=== PATIENT | female | born 1965 | race Caucasian/White ===

== ENCOUNTER → 2016-10-15 | Outpatient (CLI) | payer OTHER ==
[~2016-10-15] MED LIST: BUPR-79 PO; MELO15TA3 PO; METH-307 PO
== END | disposition home or self-care (01) ==
LOC: C.LABPVFM 15:01
PROVIDERS: ATTEND Nurse Practitioner
DX: Z00.00 Encounter for general adult medical examination without abnormal findings (principal)

== ENCOUNTER → 2017-07-27 | Outpatient (CLI) | payer OTHER ==
--- NOTE | 2017-07-27 15:17 | MAMMOGRAPHY REPORT ---
BILATERAL DIGITAL SCREENING MAMMOGRAM TOMOSYNTHESIS WITH CAD: 07/27/2017 CLINICAL HISTORY: Routine screening. Patient has no complaints. TECHNIQUE: Breast tomosynthesis in addition to standard 2D mammography was performed. Current study was also evaluated with a Computer Aided Detection (CAD) system. COMPARISON: Comparison is made to exams dated: 06/02/2016 mammogram, 04/23/2015 mammogram, 04/01/2014 m ammogram, 01/19/2013 mammogram, 03/22/2012 mammogram, and 03/10/2011 mammogram - [facility] nter. BREAST COMPOSITION: The tissue of both breasts is heterogeneously dense, which may obscure small mas ses. FINDINGS: No suspicious masses, calcifications, or areas of architectural distortion are noted in ei ther breast. There has been no significant interval change compared to prior exams. Scattered bilater al benign-appearing calcifications are not significantly changed. IMPRESSION: ACR BI-RADS CATEGORY 2: BENIGN There is no mammographic evidence of malignancy. A 1 year screening mammogram is recommended. The pa tient will receive written notification of the results. Approximately 10% of breast cancers are not detected with mammography. A negative mammographic report should not delay biopsy if a clinically suggestive mass is present. Essie Reid M.D. ah/:07/27/2017 12:23:57 Grades 6 Through 8 Teacher: Cierra WHATLEY)(M), [facility] letter sent: Normal 1/2 BI-RADS Code: ACR BI-RADS Category 2: Benign
== END | disposition home or self-care (01) ==
LOC: C.MAMM 10:26
PROVIDERS: ATTEND Family Medicine
DX: Z12.31 Encounter for screening mammogram for malignant neoplasm of breast (principal)

== ENCOUNTER → 2018-03-16 | Outpatient (CLI) | payer OTHER ==
[2018-03-16 13:21] LABS: HEMOGLOBIN A1C 5.7 % (4.5-5.6)
== END | disposition home or self-care (01) ==
LOC: C.LABPVFM 07:51
PROVIDERS: ATTEND Internal Medicine
DX: Z00.00 Encounter for general adult medical examination without abnormal findings (principal); R73.01 Impaired fasting glucose

== ENCOUNTER 2024-05-11 17:17 | Observation (INO) ==
[2024-05-11] MEDS: dilTIAZem HCl 5 MG/ML 5 ML VIAL IV STA ×2 (17:42→17:58)
[2024-05-11] MEDS: ASPIRIN CHEW 324 MG PO STA (17:42)
[2024-05-11 17:56] LABS: iSTAT Creatinine 0.9 mg/dl (0.6-1.3); iSTAT Ionized Calcium 0.98 mmol/l (1.12-1.32)
[2024-05-11] MEDS: ASPIRIN CHEW 324 MG ONE (17:57)
[2024-05-11] MEDS: LORazepam 1 MG TAB ONE (17:58)
[2024-05-11] MEDS: dilTIAZem HCL 30 MG TAB PO ONE (17:58)
[2024-05-11] MEDS: LORazepam 1 MG TAB SL STA (17:58)
[2024-05-11] MEDS: SODIUM CHLORIDE 0.9% 1,000 ML IV ONE (17:58)
[2024-05-11] MEDS: dilTIAZem HCL 125 MG in DEXTROSE 5% 100 ML IV SCH (18:20)
[2024-05-11] MEDS: STAT IV Infusion **Titration per Protocol STA (18:21)
[2024-05-11] MEDS: OPTIRAY 320 125ml IV ONE (18:21)
--- NOTE | 2024-05-11 18:37 | Emergency Department Note ---
History of Present Illness General Chief Complaint: Syncope (Near Syncope) Stated Complaint: PALPATATIONS Time Seen by Provider: 05/11/24 17:34 History of Present Illness Provider Complaint: + palpitations Time: 15:10 Duration: + Worsening Context: + occurred during rest Arrhythmia history: + SVT; no on anti-coagulants Associated symptoms: + shortness of breath and + muscle cramps; no nausea, no vomiting or no cough Home Medications Medication Instructions Recorded Confirmed Type cholecalciferol (vitamin D3) 50 2,000 units PO DAILY 10/02/19 03/28/24 History mcg (2,000 unit) tablet diclofenac sodium 1 % topical gel 4 g topical QID PRN pain #100 grams 02/12/21 03/28/24 Rx glucosamine-chondroitin 250 mg-200 2 tab PO TID 01/05/23 03/28/24 History mg tablet (Osteo Bi-Flex) meclizine 25 mg tablet 25 mg PO Q8H PRN dizziness #30 tabs 01/31/23 03/28/24 Rx bupropion HCl 150 mg 24 hr tablet, 150 mg PO DAILY #90 tabs 12/27/23 03/28/24 Rx extended release cyclobenzaprine 5 mg tablet See Rx Instructions .Route 12/28/23 03/28/24 Rx .COMPLEX PRN muscle spasm #180 tabs methocarbamol 750 mg tablet 750 mg PO Q6H PRN muscle spasm #90 01/31/24 03/28/24 Rx tabs prochlorperazine maleate 5 mg 5 mg PO TID PRN nausea and 01/31/24 03/28/24 Rx tablet (Compazine) vomiting #30 tabs prednisone 20 mg tablet 20 mg PO .COMPLEX PRN neck pain 03/06/24 03/28/24 Rx #20 tabs tramadol 50 mg tablet 50 mg PO DAILY PRN migraines #10 03/20/24 03/28/24 Rx tabs diazepam 5 mg tablet 5 mg PO .COMPLEX #2 tabs 03/28/24 03/28/24 Rx magnesium oxide 500 mg PO DAILY 03/28/24 03/28/24 History Allergies Allergy/AdvReac Type Severity Reaction Status Date / Time scopolamine Allergy Unknown CAN NOT Verified 03/28/24 09:59 TOLERATE Past Med/Surg History Problem List (Updated 09/20/24 @ 18:53 by Rajendra Martinez MD) Atrial fibrillation with RVR (Acute) Myofascial pain Cervical facet joint syndrome Cervicogenic headache Cervicalgia Impacted cerumen of both ears Onychomycosis of toenail (Chronic) Motion sickness (Chronic) Impaired fasting glucose (Chronic) Surgical History History of tooth extraction History of hand surgery History of delivery Family History Mother Hypertension Stroke Father Prostate cancer Other Diabetes No family history of adverse response to anesthesia No family history of bleeding disorder Osteoporosis Pure hypercholesterolemia Denies family history of Ovarian cancer Myocardial infarction Breast cancer Colorectal cancer Social History Smoking Status: Never smoker Second Hand Exposure: No; Do You Dip or Chew Tobacco: No; Hx Alcohol Use: No Hx Substance Use: No Preferred Language: Bangladeshi Communication Ability: Effective Visual Impairment: No Limitations Hearing Ability: Normal 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 marital status: Current Living Situation: Spouse and Family current occupational status: employed current occupation: [employer] How many Children do You have: 3 Feels Safe at Home: Yes Childhood Exposure to Second-Hand Smoke: No Diet: regular caffeine: Yes during the past year weight has: remained stable Dental Care, Regularly: Yes Physical Activity Frequency: 3-4 Times per Week Seatbelt Use: always Sunscreen Use: Yes Physical Exam 2 Vital Signs: Vital Signs - 24 hr 05/11/24 17:23 05/11/24 17:23 05/11/24 17:23 Temperature 36.4 C L Temperature Source Skin Pulse Rate 117 H Respiratory Rate 20 Respiratory Effort / Characteristics Non-Labored Sponta neous Respiratory Depth Normal Blood Pressure 94/67 L Blood Pressure Sandy n 76 Pulse Oximetry 100 Oxygen Delivery Me thod Room Air Room Air Room Air Sepsis Recent Feve r Within 48 Hours No Sepsis New/Unexpla ined Change in Men jona Status N/A Sepsis Action Take n by Nursing No Action Required 05/11/24 17:36 05/11/24 17:51 05/11/24 18:00 Temperature Temperature Source Pulse Rate 173 H 142 H 107 H Respiratory Rate 28 H 21 Respiratory Effort / Characteristics Respiratory Depth Blood Pressure 124/98 116/89 Blood Pressure Sandy n 106 98 Pulse Oximetry 96 97 Oxygen Delivery Me thod Sepsis Recent Feve r Within 48 Hours Sepsis New/Unexpla ined Change in Men jona Status Sepsis Action Take n by Nursing 05/11/24 18:22 05/11/24 18:24 05/11/24 18:30 Temperature Temperature Source Pulse Rate 100 H 102 H Respiratory Rate 17 Respiratory Effort / Characteristics Respiratory Depth Blood Pressure 108/77 108/77 Blood Pressure [facility] n 87 88 Pulse Oximetry 98 Oxygen Delivery Me thod Sepsis Recent Feve r Within 48 Hours Sepsis New/Unexpla ined Change in Men jona Status Sepsis Action Take n by Nursing Physical Exam: Physical Exam HENT: Exam performed. - Head: Normocephalic and atraumatic. EYES: Conjunctivae and EOM are normal. Right eye exhibits no discharge. Left eye exhibits no discharge. No scleral icterus. NECK: Normal range of motion. Neck supple. No JVD present. CV: Tachycardic rate, irregular rhythm, normal heart sounds and intact distal pulses. There is no peripheral edema. Palpable radial pulses bue. PULM/CHEST: Effort normal and breath sounds normal. No respiratory distress. No stridor. no wheezes. no rales. ABD: The abdomen is soft. There is no tenderness. NEURO: Motor and sensation grossly intact. SKIN: Skin is warm and dry. He is not diaphoretic. PSYCH: normal mood and affect. Behavior is normal. Judgment and thought content normal. Course Course 1733: The patient was evaluated in room A1. A complete history and physical exam was performed Cardiac monitoring: An order was placed for continuous cardiac monitoring. The monitor shows a rate of 165-180 with atrial fibrilation rhythm interpreted by me Patient found to be in A-fib RVR. Large-bore IV access was obtained. Cardizem 15 mg IV bolus was given which improved the patient's ventricular rate into the 150s. A repeat dose of 20 mg IV bolus of Cardizem was given which improved the patient's rate into the 120s. I-STAT showed a potassium of 5, otherwise unremarkable. EKGs showed no peaked T waves. Will send patient for CTA to rule out PE. 1849: Vital signs stable. Patient broke out of A-fib and went to sinus rhythm after being on Cardizem drip. Cardizem drip was stopped. Troponin negative. CTA of the chest negative. Patient will be admitted to the [facility] team. Discussed the case with Kosta Banks who states he will evaluate the patient for admission with attending Dr. Carlson. SCOTT?DS?-VASc Score for Atrial Fibrillation Stroke Risk from cVidya.CDP on 05/11/2024 All calculations should be rechecked by clinician prior to use RESULT SUMMARY: 1 points Stroke risk was 0.6% per year in >90,000 patients (the [place] Atrial Fibrillation Cohort Study) and 0.9% risk of stroke/TIA/systemic embolism. One recommendation suggests a 0 score for men or 1 score for women (no clinical risk factors) is low risk and may not require anticoagulation; a 1 score for men or 2 score for women is low-moderate risk and should consider anticoagulation; and a score >= for men or >= for women is moderate-high risk and should otherwise be an anticoagulation candidate. INPUTS: Age > 0 = <65 Sex > 1 = Female CHF history > 0 = No Hypertension history > 0 = No Stroke/TIA/thromboembolism history > 0 = No Vascular disease history (prior MS, peripheral artery disease, or aortic plaque) > 0 = No Diabetes history > 0 = No Administered Medications Diltiazem HCl 125 mg/ Dextrose 125 mls @ 5 mls/hr IV .Q24H NANDO; Protocol Stop: 06/10/24 17:59 Last Admin: 05/11/24 18:20 Dose: 5 mg/hr, 5 mls/hr Documented By: DELLA Co-signed By: SHAWNA Discontinued Medications Aspirin (Aspirin Chew 324 Mg) Confirm Administered Dose 324 mg .ROUTE .STK-MED ONE Stop: 05/11/24 17:38 Last Admin: 05/11/24 17:57 Dose: Not Given Documented By: DELLA Aspirin (Aspirin Chew 324 Mg) 324 mg PO NOW STA Stop: 05/11/24 17:38 Last Admin: 05/11/24 17:42 Dose: 324 mg Documented By: SHAWNA Diltiazem HCl (Diltiazem Hcl 5 Mg/Ml 5 Ml Vial) 15 mg IV NOW STA Stop: 05/11/24 17:38 Last Admin: 05/11/24 17:42 Dose: 15 mg Documented By: SHAWNA Co-signed By: DELLA Diltiazem HCl (Diltiazem Hcl 30 Mg Tab) Confirm Administered Dose 30 mg PO .STK- MED ONE Stop: 05/11/24 17:39 Last Admin: 05/11/24 17:58 Dose: Not Given Documented By: DELLA Diltiazem HCl (Diltiazem Hcl 5 Mg/Ml 5 Ml Vial) 20 mg IV NOW STA Stop: 05/11/24 17:49 Last Admin: 05/11/24 17:58 Dose: 20 mg Documented By: DELLA Co-signed By: SHAWNA Sodium Chloride (Nss) 1,000 mls @ 999 mls/hr IV .Q1H1M ONE Stop: 05/11/24 18:37 Last Admin: 05/11/24 17:58 Dose: 999 mls/hr Documented By: DELLA Ioversol (Optiray 320 125ml) 118 ml IV ONCE ONE Stop: 05/11/24 18:21 Last Admin: 05/11/24 18:21 Dose: 118 ml Documented By: LANIE Lorazepam (Lorazepam 1 Mg Tab) 1 mg SL NOW STA Stop: 05/11/24 17:46 Last Admin: 05/11/24 17:58 Dose: 1 mg Documented By: DELLA Lorazepam (Lorazepam 1 Mg Tab) Confirm Administered Dose 1 mg .ROUTE .STK-MED ONE Stop: 05/11/24 17:46 Last Admin: 05/11/24 17:58 Dose: Not Given Documented By: DELLA Miscellaneous (Stat Iv Infusion Titration Per Protocol) 1 each N/A NOW STA Stop: 05/11/24 17:49 Last Admin: 05/11/24 18:21 Dose: Not Given Documented By: DELLA Medical Decision Making Laboratory Data Attestation: I reviewed the patient's lab results. 05/11/24 18:00 05/11/24 18:00 Lab Results 05/11/24 05/11/24 05/11/24 Range/Units 17:43 18:00 18:05 WBC 7.37 (4.8-10.8) K/ul RBC 4.86 (4.20-5.40) M/uL Hgb 14.5 (12.0-16.0) g/dl POC Hgb 15.0 (12.0-16.0) g/dl Hct 43.4 (37.0-47.0) % POC Hct 44 (37-47) % MCV 89.3 (80.0-100.0) fL MCH 29.8 (25.0-34.0) pg MCHC 33.4 (32.0-36.0) g/dL RDW Std Deviation 38.9 (36.4-46.3) fL RDW Coeff of Jack 12.0 (11.5-14.5) % Plt Count 276 (130-400) K/uL MPV 9.6 (9.4-12.4) fL Immature Gran % (Auto) 0.3 % Neut % (Auto) 49.6 % Lymph % (Auto) 38.7 % Simpson % (Auto) 9.9 % Eos % (Auto) 1.1 % Baso % (Auto) 0.4 % Neut # (Auto) 3.66 (1.40-6.50) K/uL Lymph # (Auto) 2.85 (1.20-3.40) K/uL Simpson # (Auto) 0.73 H (0.11-0.59) K/uL Eos # (Auto) 0.08 (0.00-0.50) K/uL Baso # (Auto) 0.03 (0.00-0.20) K/uL Immature Gran # (Auto) 0.02 (0.01-0.20) K/uL POC Sodium 139 (135-144) mmol/L Sodium TNP POC Potassium 5.0 (3.3-5.0) mmol/L Potassium TNP POC Chloride 104 (101-112) mmol/L Chloride 104 (98-107) mmol/L Carbon Dioxide 26 (21-32) mmol/L POC Total CO2 25 (24-31) mmol/L Anion Gap TNP POC Anion Gap 17.0 (16-25) mmol/L POC BUN 16 (7-18) mg/dl BUN 14 (6-23) mg/dl Creatinine 0.95 (0.6-1.2) mg/dl POC Creatinine 0.9 (0.6-1.3) mg/dl Est Cr Clr Drug Dosing 59.7 ml/min Est GFR ( Amer) 76.0 ml/min Est GFR (Non-Af Amer) 65.6 ml/min BUN/Creatinine Ratio 14.7 (10-20) Glucose 131 H (70-99(Fasting)) mg/dl POC Glucose (other) 139 H (70-99) mg/dl Calcium 9.6 (8.6-10.3) mg/dl POC Ioniz Calcium Brenda 0.98 L (1.12-1.32) mmol/l Magnesium TNP Total Bilirubin 0.3 (0.2-1.0) mg/dl AST TNP ALT 16 (7-52) U/L Alkaline Phosphatase 47 (34-104) U/L Troponin I High Sens 2.6 (0-14) pg/ml Total Protein 7.6 (6.0-8.3) gm/dl Albumin 4.7 (3.4-5.0) gm/dl Globulin 2.9 (2.5-4.0) gm/dl Albumin/Globulin Ratio 1.6 (0.9-2) Urine Color Yellow Urine Appearance Clear (Clear) Urine pH 7.5 (4.5-7.5) Ur Specific [place] 1.002 (1.000-1.030) Urine Protein Negative (Negative) Urine Glucose (UA) Negative (Negative) Urine Ketones Negative (Negative) Urine Blood Negative (Negative) Urine Nitrite Negative (Negative) Urine Bilirubin Negative (Negative) Urine Urobilinogen Negative (Negative) Ur Leukocyte Esterase Trace H (Negative) Urine WBC (Auto) 0-5 (0-5) /hpf Urine RBC (Auto) 0-2 (0-2) /hpf U Hyaline Cast (Auto) 0-2 (0-2) /lpf U Epithel Cells (Auto) 0-2 (0-2) /hpf Urine Bacteria (Auto) None Seen (None Seen) Imaging Data Attestation: I personally reviewed and interpreted this imaging study as follows: My Impression: Chest x-ray negative. Airway clear. No pneumothorax. No consolidation. No cardiomegaly or cephalization.. No free air under the diaphragm. No fractures of the skeletal structures. Radiologist's Impression: Chest CTA 05/11/24 17:39 CT ANGIOGRAPHY OF THE CHEST, PULMONARY EMBOLUS PROTOCOL CLINICAL HISTORY: Palpitations. Evaluate for pulmonary embolus. COMPARISON STUDY: No previous studies for comparison. TECHNIQUE: Following IV administration of 118 mL of Optiray, helical axial images of the chest were obtained utilizing the pulmonary embolus protocol. Maximal intensity projections and sagittal and coronal reformats were viewed on an independent 3D workstation. IV contrast was administered without complication. Automated exposure control was utilized for the study. A dose lowering technique was utilized adhering to the principles of ALARA. CT DOSE: 319.4 mGy.cm FINDINGS: No pulmonary emboli are identified. The size of the heart is normal. There is no pericardial effusion. Caliber of the thoracic aorta is normal. There is no thoracic lymphadenopathy. No pneumothorax or pleural effusion is present. There are no pulmonary nodules. There is no consolidation. No acute fractures within the bony thorax are noted. Multiple water attenuation hepatic lesions measure up to 2.2 cm. These favor cysts. There is a peripherally calcified 1.6 cm density within the splenic hilum on image 24 223. IMPRESSION: 1. No pulmonary emboli identified. 2. No acute intrathoracic findings. 3. 1.6 cm peripherally calcified density within the splenic hilum. This could represent a small splenic artery aneurysm or low suspicion peripherally calcified pancreatic tail lesion. A nonemergent CT of the abdomen with IV contrast is recommended for further evaluation. ACT 112: Negative or not required by law. Electronically signed by: Dre Vanessa M.D. 05/11/2024 6:36 PM ECG Data Attestation: I personally reviewed and interpreted this ECG as follows: Additional Comments: EKG #1 at 1730: Atrial fibrillation with a rate of 180. QRS [address] elevation or ST depression EKG #2 at 1747 status post Cardizem 15 mg IV bolus: Atrial fibrillation with rate of 156. QRS [address] elevation or ST depression. EKG #3 at 1753 status post Cardizem 20 mg IV bolus: Atrial fibrillation with rate of 125. QRS [address] elevation or ST depression. EKG #4 at 1834 after being started on the Cardizem drip: Sinus rhythm with rate 99. LA 120 QRS [address] elevation or ST depression. MDM Narrative 1734: The patient was evaluated in room A1. A complete history and physical exam was performed Cardiac monitoring: An order was placed for continuous cardiac monitoring. The monitor shows a rate of 165-180 with atrial fibrilation rhythm interpreted by me Patient found to be in A-fib RVR. Large-bore IV access was obtained. Cardizem 15 mg IV bolus was given which improved the patient's ventricular rate into the 150s. A repeat dose of 20 mg IV bolus of Cardizem was given which improved the patient's rate into the 120s. I-STAT showed a potassium of 5, otherwise unremarkable. EKGs showed no peaked T waves. Will send patient for CTA to rule out PE. 1850: Vital signs stable. Patient broke out of A-fib and went to sinus rhythm after being on Cardizem drip. Cardizem drip was stopped. Troponin negative. CTA of the chest negative. Patient will be admitted to the [facility] team. Discussed the case with Kosta Banks who states he will evaluate the patient for admission with attending Dr. Carlson. SCOTT?DS?-VASc Score for Atrial Fibrillation Stroke Risk from cVidya.CDP on 05/11/2024 All calculations should be rechecked by clinician prior to use RESULT SUMMARY: 1 points Stroke risk was 0.6% per year in >90,000 patients (the [place] Atrial Fibrillation Cohort Study) and 0.9% risk of stroke/TIA/systemic embolism. One recommendation suggests a 0 score for men or 1 score for women (no clinical risk factors) is low risk and may not require anticoagulation; a 1 score for men or 2 score for women is low-moderate risk and should consider anticoagulation; and a score >= for men or >= for women is moderate-high risk and should otherwise be an anticoagulation candidate. INPUTS: Age > 0 = <65 Sex > 1 = Female CHF history > 0 = No Hypertension history > 0 = No Stroke/TIA/thromboembolism history > 0 = No Vascular disease history (prior MS, peripheral artery disease, or aortic plaque) > 0 = No Diabetes history > 0 = No Impression & Plan Atrial fibrillation with RVR Critical Care Time Critical Care Time: Yes Total Critical Care Time: 59 I have personally spent greater than 59 minutes of critical care time in the direct management of this patient. This includes bedside care, interpretation of diagnostic studies, and testing, discussion with consultants, patient, and family members, and other required patient management activities. This 59 minutes is in excess of all separately billable procedures. Discharge Plan Visit Data Chief Complaint: Syncope (Near Syncope) Stated Complaint: PALPATATIONS ED Provider: Rajendra Martinez Discharge Problem: Atrial fibrillation with RVR Patient Disposition: Admitted As Inpatient Forms Stand Alone Forms: My [facility] Prescriptions Prescriptions: No Action magnesium oxide 500 mg magnesium tablet 500 mg PO DAILY diazepam 5 mg tablet 5 mg PO .COMPLEX Qty: 2 0RF Rx Instructions: 5 mg PO 1 PO 1.5 hours before procedure, may repeat 0.5 hours prior to procedure; diclofenac sodium 1 % gel 4 g topical QID PRN (Reason: pain) Qty: 100 3RF Rx Instructions: apply to single knee, ankle, foot; for foot includes sole/toes/top of foot meclizine 25 mg tablet 25 mg PO Q8H PRN (Reason: dizziness) Qty: 30 3RF bupropion HCl 150 mg tablet extended release 24 hr 150 mg PO DAILY Qty: 90 3RF cyclobenzaprine 5 mg tablet See Rx Instructions .ROUTE .COMPLEX PRN (Reason: muscle spasm) Qty: 180 1RF Rx Instructions: 1-2 tabs PO qhs PRN; prednisone 20 mg tablet 20 mg PO .COMPLEX PRN (Reason: neck pain) Qty: 20 0RF Rx Instructions: take 1-2 as needed for neck pain tramadol 50 mg tablet 50 mg PO DAILY PRN (Reason: migraines) Qty: 10 0RF cholecalciferol (vitamin D3) 2,000 unit tablet 2,000 units PO DAILY glucosamine-chondroitin [Osteo Bi-Flex] 250-200 mg tablet 2 tab PO TID Rx Instructions: give after food/meal methocarbamol 750 mg tablet 750 mg PO Q6H PRN (Reason: muscle spasm) Qty: 90 3RF prochlorperazine maleate [Compazine] 5 mg tablet 5 mg PO TID PRN (Reason: nausea and vomiting) Qty: 30 1RF Referrals Referrals: Elli Swenson CRNP [Primary Care Provider] -
--- NOTE | 2024-05-11 18:38 | CT Scan Report ---
CT ANGIOGRAPHY OF THE CHEST, PULMONARY EMBOLUS PROTOCOL CLINICAL HISTORY: Palpitations. Evaluate for pulmonary embolus. COMPARISON STUDY: No previous studies for comparison. TECHNIQUE: Following IV administration of 118 mL of Optiray, helical axial images of the chest were o btained utilizing the pulmonary embolus protocol. Maximal intensity projections and sagittal and cor onal reformats were viewed on an independent 3D workstation. IV contrast was administered without co mplication. Automated exposure control was utilized for the study. A dose lowering technique was ut ilized adhering to the principles of ALARA. CT DOSE: 319.4 mGy.cm FINDINGS: No pulmonary emboli are identified. The size of the heart is normal. There is no pericardi al effusion. Caliber of the thoracic aorta is normal. There is no thoracic lymphadenopathy. No pneumo thorax or pleural effusion is present. There are no pulmonary nodules. There is no consolidation. No acute fractures within the bony thorax are noted. Multiple water attenuation hepatic lesions measure up to 2.2 cm. These favor cysts. There is a peripherally calcified 1.6 cm density within the splenic hilum on image 24 223. IMPRESSION: 1. No pulmonary emboli identified. 2. No acute intrathoracic findings. 3. 1.6 cm peripherally calcified density within the splenic hilum. This could represent a small splen ic artery aneurysm or low suspicion peripherally calcified pancreatic tail lesion. A nonemergent CT o f the abdomen with IV contrast is recommended for further evaluation. ACT 112: Negative or not required by law. Electronically signed by: Dre Vanessa M.D. 05/11/2024 6:36 PM
[2024-05-11 18:40] LABS: Appearance Urine Clear (Clear); Bacteria Urine Automated None Seen (None Seen); Bilirubin Urine Negative (Negative); Blood Urine Negative (Negative); Cast Urine Automated 0-2 /lpf (0-2); Color Urine Yellow; Epithelial Cell Urine Auto 0-2 /hpf (0-2); Glucose Urine UA Negative (Negative); Ketones Urine Negative (Negative); Leukocyte Esterase Urine Trace (Negative); Nitrite Urine Negative (Negative); Protein Urine Negative (Negative); RBC Urine Automated 0-2 /hpf (0-2); Specific Gravity Urine 1.002 (1.000-1.030); Urobilinogen Urine Negative (Negative); WBC Urine Automated 0-5 /hpf (0-5); pH Urine 7.5 (4.5-7.5)
[2024-05-11 18:41] LABS: Basophils # (auto) 0.03 K/uL (0.00-0.20); Basophils % (auto) 0.4 %; Eosinophils # (auto) 0.08 K/uL (0.00-0.50); Eosinophils % (auto) 1.1 %; Hematocrit (blood only) 43.4 % (37.0-47.0); Hemoglobin 14.5 g/dl (12.0-16.0); Immature Granulocytes # (auto) 0.02 K/uL (0.01-0.20); Immature Granulocytes % (auto) 0.3 %; Lymphocytes # (auto) 2.85 K/uL (1.20-3.40); Lymphocytes % (auto) 38.7 %; Mean Corpuscular Hemoglobin 29.8 pg (25.0-34.0); Mean Corpuscular Hgb Conc 33.4 g/dL (32.0-36.0); Mean Corpuscular Volume 89.3 fL (80.0-100.0); Mean Platelet Volume 9.6 fL (9.4-12.4); Monocytes # (auto) 0.73 K/uL (0.11-0.59); Monocytes % (auto) 9.9 %; Neutrophils # (auto) 3.66 K/uL (1.40-6.50); Neutrophils % (auto) 49.6 %; Platelet Count 276 K/uL (130-400); RDW Standard Deviation 38.9 fL (36.4-46.3); Red Blood Count 4.86 M/uL (4.20-5.40); White Blood Count 7.37 K/ul (4.8-10.8)
[2024-05-11 18:45] LABS: Alanine Aminotransferase 16 U/L (7-52); Albumin Globulin Ratio 1.6 (0.9-2); Albumin Level 4.7 gm/dl (3.4-5.0); Alkaline Phosphatase 47 U/L (34-104); BUN Creatinine Ratio 14.7 (10-20); Bilirubin,Total 0.3 mg/dl (0.2-1.0); Blood Urea Nitrogen 14 mg/dl (6-23); Calcium 9.6 mg/dl (8.6-10.3); Carbon Dioxide 26 mmol/L (21-32); Chloride 104 mmol/L (98-107); Creatinine Clr Calc Pharmacy 59.7 ml/min; Est GFR (Non-African American) 65.6 ml/min; Globulin 2.9 gm/dl (2.5-4.0); Glucose 131 mg/dl (70-99(Fasting)); Total Protein 7.6 gm/dl (6.0-8.3); Troponin I High Sensitivity 2.6 pg/ml (0-14)
--- NOTE | 2024-05-11 18:55 | History & Physical Report ---
Date of Service May 11, 2024 Assessment & Plan (1) Atrial fibrillation with RVR: Plan: New onset - likely started around 3pm, no exacerbating factors [id number] 1 - do not recommend anticoagulation due to short duration and low score Converted back to NSR around 6:20pm with diltiazem Start metoprolol tartrate 25mg PO BID Monitor on telemetry overnight for recurrence given lack of exacerbating factor, reasonable likelihood of recurrence TTE tomorrow (2) Abnormal CT of the chest: Plan: "1.6 cm peripherally calcified density within the splenic hilum. This could represent a small splenic artery aneurysm or low suspicion peripherally calcified pancreatic tail lesion. 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 Symptoms started out of nowhere around 3pm with fast palpitations and she felt her pulse which was too rapid to count. She tried slow breathing, Valsalva manoeuvres and carotid massage (assuming it was SVT) but nothing helped. Any movement, position change or even talking made it worse. Associated chest pressure, severity 5/10, substernal, no radiation. Associated lightheadedness. No diaphoresis. No prior history of cardia arrhythmias, heart attack or stroke. After diltiazem and subsequent conversion to normal sinus rhythm in the ER she had almost immediate relief of her chest pressure. She is a non smoker, no alcohol, no illicit drugs. No hypothyroidism. She did not feel dehydrated. Last prednisone use on Tuesday - she takes occasional dose for neck pain. [place] well today and yesterday prior to this episode. Allergies Allergy/AdvReac Type Severity Reaction Status Date / Time scopolamine Allergy Unknown CAN NOT Verified 03/28/24 09:59 TOLERATE Home Medications Medication Instructions Recorded Confirmed Type cholecalciferol (vitamin D3) 50 2,000 units PO DAILY 10/02/19 05/11/24 History mcg (2,000 unit) tablet diclofenac sodium 1 % topical gel 4 g topical QID PRN pain #100 grams 02/12/21 05/11/24 Rx glucosamine-chondroitin 250 mg-200 2 tab PO TID 01/05/23 05/11/24 History mg tablet (Osteo Bi-Flex) meclizine 25 mg tablet 25 mg PO Q8H PRN dizziness #30 tabs 01/31/23 05/11/24 Rx bupropion HCl 150 mg 24 hr tablet, 150 mg PO DAILY #90 tabs 12/27/23 05/11/24 Rx extended release cyclobenzaprine 5 mg tablet See Rx Instructions .Route 12/28/23 05/11/24 Rx .COMPLEX PRN muscle spasm #180 tabs methocarbamol 750 mg tablet 750 mg PO Q6H PRN muscle spasm #90 01/31/24 05/11/24 Rx tabs prochlorperazine maleate 5 mg 5 mg PO TID PRN nausea and 01/31/24 05/11/24 Rx tablet (Compazine) vomiting #30 tabs prednisone 20 mg tablet 20 mg PO .COMPLEX PRN neck pain 03/06/24 05/11/24 Rx #20 tabs tramadol 50 mg tablet 50 mg PO DAILY PRN migraines #10 03/20/24 05/11/24 Rx tabs magnesium oxide 500 mg PO HS 03/28/24 05/11/24 History Past Med/Surg History Problem List (Updated 05/12/24 @ 00:21 by Jonatan Carlson MD) Abnormal CT of the chest Atrial fibrillation with RVR (Acute) Myofascial pain Cervical facet joint syndrome Cervicogenic headache Cervicalgia Impacted cerumen of both ears Onychomycosis of toenail (Chronic) Motion sickness (Chronic) Impaired fasting glucose (Chronic) Surgical History History of tooth extraction History of hand surgery History of delivery Family History Mother Hypertension Stroke Father Prostate cancer Other Diabetes No family history of adverse response to anesthesia No family history of bleeding disorder Osteoporosis Pure hypercholesterolemia Denies family history of Ovarian cancer Myocardial infarction Breast cancer Colorectal cancer Social History Smoking Status: Never smoker Second Hand Exposure: No; Do You Dip or Chew Tobacco: No; Hx Alcohol Use: No Hx Substance Use: No Preferred Language: Yi Communication Ability: Effective Visual Impairment: No Limitations Hearing Ability: Normal Pediatric Psychologist Required: No Beliefs That Will Affect Care: None marital status: Current Living Situation: Spouse current occupational status: employed 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 How many Children do You have: 3 Feels Safe at Home: Yes Safety Concerns: Feels Safe At This Time Childhood Exposure to Second-Hand Smoke: No Diet: regular caffeine: Yes during the past year weight has: remained stable Dental Care, Regularly: Yes Physical Activity Frequency: 3-4 Times per Week Seatbelt Use: always Sunscreen Use: Yes Assistive Devices: None Review of Systems Review of Systems: All systems reviewed & are unremarkable except as noted in HPI & below Physical Exam Constitutional: WD/WN, vitals as above ENMT: Mouth: oral mucous membranes not dry Respiratory: normal respiratory effort, lungs clear to auscultation Cardiovascular: RRR, no murmur, no edema Gastrointestinal (Abdomen): normal bowel sounds, soft, nontender, no hepatosplenomegaly Results & Data Results & Data Vital Signs (Past 12 Hours) Vital Signs Temp Pulse Resp BP Pulse Ox O2 Del Method 05/11/24 18:30 108/77 05/11/24 18:24 102 H 17 108/77 98 05/11/24 18:22 100 H 05/11/24 18:00 107 H 21 116/89 97 05/11/24 17:51 142 H 28 H 124/98 96 05/11/24 17:36 173 H 05/11/24 17:23 Room Air 05/11/24 17:23 Room Air 05/11/24 17:23 36.4 C L 117 H 20 94/67 L 100 Room Air Laboratory Results Abnormal lab results 05/11/24 05/11/24 05/11/24 Range/Units 17:43 18:00 18:05 Wilkinson # (Auto) 0.73 H (0.11-0.59) K/uL Glucose 131 H (70-99(Fasting)) mg/dl POC Glucose (other) 139 H (70-99) mg/dl POC Ioniz Calcium Brenda 0.98 L (1.12-1.32) mmol/l Ur Leukocyte Esterase Trace H (Negative) Diagnostic Findings CT ANGIOGRAPHY OF THE CHEST, PULMONARY EMBOLUS PROTOCOL CLINICAL HISTORY: Palpitations. Evaluate for pulmonary embolus. COMPARISON STUDY: No previous studies for comparison. TECHNIQUE: Following IV administration of 118 mL of Optiray, helical axial images of the chest were obtained utilizing the pulmonary embolus protocol. Maximal intensity projections and sagittal and coronal reformats were viewed on an independent 3D workstation. IV contrast was administered without complication. Automated exposure control was utilized for the study. A dose lowering technique was utilized adhering to the principles of ALARA. CT DOSE: 319.4 mGy.cm FINDINGS: No pulmonary emboli are identified. The size of the heart is normal. There is no pericardial effusion. Caliber of the thoracic aorta is normal. There is no thoracic lymphadenopathy. No pneumothorax or pleural effusion is present. There are no pulmonary nodules. There is no consolidation. No acute fractures within the bony thorax are noted. Multiple water attenuation hepatic lesions measure up to 2.2 cm. These favor cysts. There is a peripherally calcified 1.6 cm density within the splenic hilum on image 24 223. IMPRESSION: 1. No pulmonary emboli identified. 2. No acute intrathoracic findings. 3. 1.6 cm peripherally calcified density within the splenic hilum. This could represent a small splenic artery aneurysm or low suspicion peripherally calcified pancreatic tail lesion. A nonemergent CT of the abdomen with IV contrast is recommended for further evaluation. Medications Administered ER Medications Given: Aspirin 324 mg p.o. Normal saline 1 L bolus Diltiazem 50 mg IV Lorazepam 1 mg sublingual Diltiazem 20 mg IV Diltiazem 5 mg/h drip ECG Rate (beats per minute): 180 Rhythm: atrial fibrillation Findings: + nonspecific-ST abn Comparison ECG Date: no prior available Code Status & VTE Plan Code Status Full VTE Prophylaxis Plan VTE Prophylaxis will be ordered: No PG Care Time/CCT Total # of Minutes Spent Total Time Spent with Patient: Total time spent is greater than 50% in coordination of care (as documented) at patient's floor/unit and/or counseling patient: Coding Level of Care Code 42270 INT INP/OBS CARE 3/75MIN Diagnoses Atrial fibrillation with RVR I48.[address] of the chest R93.89
--- NOTE | 2024-05-11 19:27 | XRay Report ---
XR chest 1V not portable CLINICAL HISTORY: Chest pain, nonspecific COMPARISON STUDY: No previous studies for comparison. FINDINGS: Lung volumes are normal. Lungs are clear. There is no pneumothorax or pleural effusion. Car diac size is normal. Mediastinal contours are normal. There is no evidence for pulmonary edema. IMPRESSION: No acute cardiopulmonary findings. ACT 112: Negative or not required by law. Electronically signed by: Dre Vanessa M.D. 05/11/2024 7:25 PM
[2024-05-11] MEDS: METOPROLOL TARTRATE 25 MG TAB PO STA (19:41)
[2024-05-11 19:42] LABS: Magnesium 1.4 mg/dl (1.7-2.4); Potassium 2.5 mmol/L (3.5-5.1)
[2024-05-11 19:49] LABS: Partial Thromboplastin Time 26 Seconds (21-31); Prothrombin Time 11.3 Seconds (9.0-12.0)
[2024-05-11 19:52] LABS: Thyroid Stimulating Hormone 2.458 uIu/ml (0.300-4.500)
[2024-05-11] MEDS: POTASSIUM CHLORIDE CRTAB 20 MEQ TABCR PO STA (20:51)
[2024-05-11] MEDS: MAGNESIUM SULFATE / D5W 1 GM/100 ML BAG IV SCH (20:51)
[2024-05-11] MEDS ORDERED: PROCHLORPERAZINE MALEATE 5 MG TAB PO PRN (21:34)
[2024-05-11 22:14] LABS: BUN Creatinine Ratio 13.8 (10-20); Calcium 8.7 mg/dl (8.6-10.3); Creatinine Clr Calc Pharmacy 71.3 ml/min; Est GFR (African American) 93.5 ml/min; Est GFR (Non-African American) 80.7 ml/min; Magnesium 2.1 mg/dl (1.7-2.4); Potassium 3.7 mmol/L (3.5-5.1)
[2024-05-11] MEDS: MAGNESIUM OXIDE 400 MG TAB PO SCH (22:35)
[2024-05-11] MEDS: CYCLOBENZAPRINE HCL 10 MG TAB PO SCH (22:35)
[2024-05-12 07:15] VITALS: RESP 18
[2024-05-12] MEDS: CHOLECALCIFEROL 25 MCG (1000 UNITS) TAB PO SCH (08:35)
[2024-05-12] MEDS: buPROPion XL 150 MG TABCR PO SCH (08:35)
[2024-05-12] MEDS: METOPROLOL TARTRATE 25 MG TAB PO SCH (08:35)
--- NOTE | 2024-05-12 11:27 | Electrocardiogram Report ---
Test Reason : Blood Pressure : */* mmHG Vent. Rate : 180 BPM Atrial Rate : * BPM P-R Int : * ms QRS Dur : 72 ms QT Int : 258 ms P-R-T Axes : * 75 -22 degrees QTcB Int : 446 ms Atrial fibrillation with rapid ventricular response Nonspecific ST abnormality Abnormal ECG No previous ECGs available Confirmed by Freddy Leiva ([id number]) on 05/12/2024 11:27:30 AM Referred By: Confirmed By: Freddy Leiva
[2024-05-12 11:57] VITALS: BP 114/74; PULSE 72; TEMP 98.2; O2SAT 99
--- NOTE | 2024-05-13 11:23 | XCELERA ---
[id number]
--- NOTE | 2024-05-13 12:07 | Electrocardiogram Report ---
Test Reason : Blood Pressure : */* mmHG Vent. Rate : 156 BPM Atrial Rate : * BPM P-R Int : * ms QRS Dur : 76 ms QT Int : 254 ms P-R-T Axes : * 75 -40 degrees QTcB Int : 409 ms Atrial fibrillation with rapid ventricular response Abnormal ECG When compared with ECG of 11-May-2024 17:30, No significant change was found Confirmed by Freddy Leiva ([id number]) on 05/13/2024 12:07:21 PM Referred By: REFERRED SELF Confirmed By: Freddy Leiva
--- NOTE | 2024-05-13 12:08 | Electrocardiogram Report ---
Test Reason : Blood Pressure : */* mmHG Vent. Rate : 79 BPM Atrial Rate : 79 BPM P-R Int : 142 ms QRS Dur : 78 ms QT Int : 400 ms P-R-T Axes : 78 67 60 degrees QTcB Int : 458 ms Normal sinus rhythm Normal ECG When compared with ECG of 11-May-2024 18:34, (unconfirmed) No significant change was found Confirmed by Freddy Leiva ([id number]) on 05/13/2024 12:08:34 PM Referred By: REFERRED SELF Confirmed By: Freddy Leiva
--- NOTE | 2024-05-13 12:09 | Electrocardiogram Report ---
Test Reason : Blood Pressure : */* mmHG Vent. Rate : 99 BPM Atrial Rate : 99 BPM P-R Int : 120 ms QRS Dur : 78 ms QT Int : 352 ms P-R-T Axes : 38 66 49 degrees QTcB Int : 451 ms Normal sinus rhythm Normal ECG When compared with ECG of 11-May-2024 17:47, (unconfirmed) Sinus rhythm has replaced Atrial fibrillation Vent. rate has decreased by [address] no longer depressed in Inferior leads T wave inversion no longer evident in Inferior leads Confirmed by Freddy Leiva ([id number]) on 05/13/2024 12:08:54 PM Referred By: REFERRED SELF Confirmed By: Freddy Leiva
--- NOTE | 2024-05-13 12:13 | Electrocardiogram Report ---
Test Reason : Blood Pressure : */* mmHG Vent. Rate : 76 BPM Atrial Rate : 76 BPM P-R Int : 134 ms QRS Dur : 82 ms QT Int : 378 ms P-R-T Axes : 82 70 61 degrees QTcB Int : 425 ms Normal sinus rhythm Normal ECG When compared with ECG of 12-May-2024 05:53, (unconfirmed) No significant change was found Confirmed by Freddy Leiva ([id number]) on 05/13/2024 12:12:59 PM Referred By: REFERRED SELF Confirmed By: Freddy Leiva
--- NOTE | 2024-05-17 06:59 | Discharge Summary ---
Discharge Summary Date of Service May 12, 2024 Principal Dx & Hospital Course #1 = Principal Diagnosis (1) Atrial fibrillation with RVR: New onset - likely started around 3pm, no exacerbating factors [id number] 1 - do not recommend anticoagulation due to short duration and low score; may consider aspirin. Will start now, but will defer to PCP if this neeeds to be continued. Converted back to NSR around 6:20pm with diltiazem Start metoprolol tartrate 25mg PO BID Monitor on telemetry overnight: patient remained in sinus. TTE: normal EF. (2) Abnormal CT of the chest: "1.6 cm peripherally calcified density within the splenic hilum. This could represent a small splenic artery aneurysm or low suspicion peripherally calcified pancreatic tail lesion. 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 Symptoms started out of nowhere around 3pm with fast palpitations and she felt her pulse which was too rapid to count. She tried slow breathing, Valsalva manoeuvres and carotid massage (assuming it was SVT) but nothing helped. Any movement, position change or even talking made it worse. Associated chest pressure, severity 5/10, substernal, no radiation. Associated lightheadedness. No diaphoresis. No prior history of cardia arrhythmias, heart attack or stroke. After diltiazem and subsequent conversion to normal sinus rhythm in the ER she had almost immediate relief of her chest pressure. She is a non smoker, no alcohol, no illicit drugs. No hypothyroidism. She did not feel dehydrated. Last prednisone use on Tuesday - she takes occasional dose for neck pain. [place] well today and yesterday prior to this episode. Discharge Exam Constitutional WD/WN, vitals as above Respiratory normal respiratory effort, lungs clear to auscultation Cardiovascular RRR, no murmur, no edema Skin no rashes, warm and dry Discharge Plan Discharge Items Patient Disposition: Home - Self-Care Reason For Visit: A. FIB RVR Discharge Diagnosis: a fib rvr Activity: Resume your previous activity Non-emergency contact: Primary Care Provider Call non-emergency contact if: you have any medication questions Follow-up/Referrals: Elli Swenson CRNP [Primary Care Provider] - 05/17/24 10:00 am (Hospital follow up scheduled May 17 at 10:00 with CRAY Garner) Diet: Regular Addtl Attending Provider Instructions: Good afternoon Mrs. Patterson, It was a pleasure to meet you. Even though you came in with Atrial fibrillation and RVR, you quickly cardioverted once you received treatment. I discussed with Cardiology regarding your echo and your EF was normal which is fantastic news. As stated before, we will start metoprolol succinate 50 mg PO PM. You may also start baby aspirin once daily. Recent studies have shown that aspirin may not reduce risk of a stroke in cases with a low CHADSVASC score so you may talk to your PCP about this. Also please followup with your PCP regarding the incidental finding on your CT scan. Again it was a pleasure and hope you enjoy your weekend with your family. Best regards, Dalton Colleen Pending Studies at Discharge: No Stand-Alone Forms: My [facility] [employer], Smoking Cessation Medications and DC Order Prescriptions: New metoprolol succinate 50 mg tablet extended release 24 hr 50 mg PO HS Qty: 30 0RF aspirin [Adult Aspirin Regimen] 81 mg tablet,delayed release (DR/EC) 81 mg PO DAILY Qty: 30 0RF Continued magnesium oxide 500 mg magnesium tablet 500 mg PO HS diclofenac sodium 1 % gel 4 g topical QID PRN (Reason: pain) Qty: 100 3RF Rx Instructions: apply to single knee, ankle, foot; for foot includes sole/toes/top of foot meclizine 25 mg tablet 25 mg PO Q8H PRN (Reason: dizziness) Qty: 30 3RF bupropion HCl 150 mg tablet extended release 24 hr 150 mg PO DAILY Qty: 90 3RF cyclobenzaprine 5 mg tablet See Rx Instructions .ROUTE .COMPLEX PRN (Reason: muscle spasm) Qty: 180 1RF Rx Instructions: 1-2 tabs PO qhs PRN; prednisone 20 mg tablet 20 mg PO .COMPLEX PRN (Reason: neck pain) Qty: 20 0RF Rx Instructions: take 1-2 as needed for neck pain tramadol 50 mg tablet 50 mg PO DAILY PRN (Reason: migraines) Qty: 10 0RF cholecalciferol (vitamin D3) 2,000 unit tablet 2,000 units PO DAILY glucosamine-chondroitin [Osteo Bi-Flex] 250-200 mg tablet 2 tab PO TID Rx Instructions: give after food/meal methocarbamol 750 mg tablet 750 mg PO Q6H PRN (Reason: muscle spasm) Qty: 90 3RF prochlorperazine maleate [Compazine] 5 mg tablet 5 mg PO TID PRN (Reason: nausea and vomiting) Qty: 30 1RF Discharge Orders: Discharge Order (Routine); Ordered 05/12/24 Ordered By: Dalton Macias Admission Data Admit Date/Time: 05/11/24 20:42 Attending Provider: Dalton Macias Admit Provider: Jonatan Carlson Primary Care Provider: Elli Swenson Other Interventions: Discharge Summary Assessment (RN) Last Done: 05/12/24 14:39 Hospital Stay Data Consultations 05/11/24 18:46 ED Decision to Admit Stat Diagnostic Imagining Performed 05/11/24 17:39 CT angio chest PE protocol Stat Pending Results Patient Have Any Pending Studies at Discharge: No Discharge Instructions Given to Patient (Per Discharging Provider) Good afternoon Mrs. Patterson, It was a pleasure to meet you. Even though you came in with Atrial fibrillation and RVR, you quickly cardioverted once you received treatment. I discussed with Cardiology regarding your echo and your EF was normal which is fantastic news. As stated before, we will start metoprolol succinate 50 mg PO PM. You may also start baby aspirin once daily. Recent studies have shown that aspirin may not reduce risk of a stroke in cases with a low CHADSVASC score so you may talk to your PCP about this. Also please followup with your PCP regarding the incidental finding on your CT scan. Again it was a pleasure and hope you enjoy your weekend with your family. Best regards, Dalton Macias Total Time Total Time Spent Total Time Spent (In Minutes): 32 Coding Level of Care Code 82210 INP/OBS DISCH >30 MIN Diagnoses Atrial fibrillation with RVR I48.[address] of the chest R93.89
== END 2024-05-12 14:40 | disposition home or self-care (01) ==
LOC: 2S 17:17 → ED 17:17 → SUATTDRO 20:42 → 2S 21:09
DX: R00.2 Palpitations; Z79.899 Other long term (current) drug therapy; Z88.8 Allergy status to other drugs, medicaments and biological substances; R91.8 Other nonspecific abnormal finding of lung field; R55 Syncope and collapse; I48.91 Unspecified atrial fibrillation